=== PATIENT | female | born 1955 | race Caucasian/White ===

== ENCOUNTER 2016-09-05 16:48 | Emergency (ER) | payer BC ==
[2016-09-05] MEDS ORDERED: SULFAMETHOXAZOLE/TRIMETHOPRIM 1 TAB TABLET PO ONE (17:01)
[2016-09-05] MEDS ORDERED: SULFAMETHOXAZOLE/TRIMETHOPRIM 1 TAB TABLET ONE (17:04)
[2016-09-05 17:10] VITALS: BP 129/67
--- NOTE | 2016-09-05 17:23 | ERNOTE ---
Integumentary HPI - Narrative Date of Service: 09/05/16 - General Presenting Symptoms: abscess Time Seen by Provider: 09/05/16 17:02 Source: patient Exam Limitations: no limitations - Immun/Allergies/Home Medications Immunizations: IMMUNIZATION HX Immunizations Up to Date Yes History of Influenza Vaccine Yes Hx Pneumococcal Vaccination Yes Allergies/Adverse Reactions: Allergies Allergy/AdvReac Type Severity Reaction Status Date / Time No Known Allergies Allergy Unverified 09/05/16 17:01 Home Medications: HOME MEDICATIONS Atorvastatin Calcium [Lipitor] 10 mg PO DAILY 09/05/16 [Last Taken Unknown] Levothyroxine Sodium [Synthroid] 125 mcg PO DAILY 09/05/16 [Last Taken Unknown] Potassium Chloride [Klor-Con] 20 meq PO DAILY 09/05/16 [Last Taken Unknown] Spironolactone [Aldactone] 100 mg PO DAILY 09/05/16 [Last Taken Unknown] Sulfamethoxazole/Trimethoprim [Bactrim Ds] 1 tab PO BID #20 tab 09/05/16 [Last Taken Unknown] - Pain Pain Score: 4 - History of Present Illness Narrative: 61-year-old female presents to the emergency room for a abscess on her left lower abdominal area. 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 Ears are clear. She noticed a small area on Sunday to get her. Patient has drainage on her clothing is purulent and serosanguineous Date (Duration): 09/05/16 Location: Reports: torso Quality: Reports: painful Severity: mild Exposure: Reports: no cause identified Modifying Factors - (Improves): Reports: nothing Modifying Factors - (Worsens): Reports: scratching Associated Symptoms: Reports: change in skin texture, swelling/mass/lumps Prior Treatment: Reports: other - hx of MRSA Review of Systems - Review of Systems Constitutional: Present: no symptoms reported EYE: Present: no symptoms reported ENT: Present: no symptoms reported Respiratory: Present: no symptoms reported Cardiology: Present: no symptoms reported Gastrointestinal/Abdominal: Present: no symptoms reported Genitourinary: Present: no symptoms reported Musculoskeletal: Present: no symptoms reported Skin: Present: See HPI, lesions, change in color Neurological: Present: no symptoms reported Endocrine: Present: no symptoms reported Hematologic/Lymphatic: Present: no symptoms reported Psych: Present: no symptoms reported All Other Systems: All systems neg except as marked - Patient's Past Medical History Patient History - Medical: GERD, Hypothyroidism, Other - MRSA Patient History - Cardiac/Respiratory: Hypertension Patient History - Cancer: No Hx of Cancer Patient History - Surgical Procedures: Cholecystectomy, T & A Patient History - Other: None LMP (females 10-50): Menopausal - Social History Living Situations: home Abuse History: No History of abuse Psych History: No pertinent hx Smoking Status: Never smoker Alcohol Use: none Drug Use: none - Immunizations Immunizations Up to Date: Yes Hx Pneumococcal Vaccination: Yes History of Influenza Vaccine: Yes Physical Exam - Physical Exam Narrative: patient LLQ area has a 1cm cark red scabbed area. surrounding the abscess opeing is about 5cm of red, warm tissue. drainage was evident on her clothing but abscess is firm and not appropriate for an I&D at this time. General Appearance: Present: wd/wn, alert, no apparent distress Head Exam: Present: normal inspection, no evidence of injury Eye Exam: Normal inspection: bilateral Ears, Nose, Throat: Present: normal ENT inspection, normal pharynx Neck: Present: normal inspection, nontender Respiratory: Present: no respiratory distress, normal breath sounds, no accessory muscle use, chest nontender, lungs clear Cardiovascular/Chest: Present: regular rate, rhythm, no murmur, normal peripheral pulses Gastrointestinal/Abdominal: Present: normal bowel sounds, nontender, nondistended, soft, no organomegaly Back Exam: Present: normal inspection, normal range of motion, no CVA tenderness , no vertebral tenderness Extremity Exam: Present: normal inspection, non-tender, normal range of motion, no edema Neurological Exam: Present: alert, oriented, normal mood/affect, no motor/ sensory deficits Skin Exam: Present: other - see note Lymphatic Exam: Present: no adenopathy ED Progress - Vital Signs Patient's Vital Signs:: I have reviewed the patient's vital signs. Vital Signs: Vital Signs 09/05/16 16:53 Temperature 36.8 C Pulse Rate 72 Respiratory 16 Rate Blood Pressure 156/78 O2 Sat by Pulse 96 Oximetry - Progress/Reassessment Chief Complaint: Abscess Progress:: Unchanged Plan - Plan Plan: patient has a history of MRSA abscess and is familiar with ow to treat it. patient encouraged to follow up with her PCP or doctor that treated her last MRSA abscess. Patient states that Bactrim DS is what she took a few years ago that helped clear up her last abscess. patient is on spirolonactone and KCL. patient advised to hold her KCL while on abx, and will follow up with PCP in 2-3 days. Departure Clinical Impression: MRSA cellulitis - Departure Disposition: Home Follow Up Needed Condition: Stable Instructions: Abscess, [id number] Additional Instructions: Continue previous home medications except you potassium. Please hold this medication while you are taking this antibiotic. Follow up with her primary care provider earlier with doctor in the next few days related to her diagnosis. Take all antibiotics as prescribed. Return to the emergency room if he started developing pink fevers or increased pain or redness around the abscess area continues to spread. Referrals: Kobe Reinoso MD [Primary Care Provider] - Prescriptions: Sulfamethoxazole/Trimethoprim [Bactrim Ds] 1 tab PO BID #20 tab
== END 2016-09-05 17:24 | disposition home or self-care (01) ==
LOC: ER 16:48
DX: L03.311 Cellulitis of abdominal wall (principal); B95.62 Methicillin resistant Staphylococcus aureus infection as the cause of diseases classified elsewhere; Z86.14 Personal history of Methicillin resistant Staphylococcus aureus infection; I10 Essential (primary) hypertension; K21.9 Gastro-esophageal reflux disease without esophagitis; E03.9 Hypothyroidism, unspecified